=== PATIENT | female | born 1985 | race Caucasian/White ===

== ENCOUNTER → 2018-10-21 | Outpatient (REF) | payer SELFPAY ==
[~2018-10-21] MED LIST: ANUS2.5C2 TOP; IBUP600T26 PO; MAPA500T17 PO; MOM30SS PO
[2018-10-21 20:25] LABS: BASO % 0.2 % (0.0-1.0); EOS # 0.1 10^3/uL (0.0-0.50); HEMATOCRIT 40.9 % (36.0-47.0); HEMOGLOBIN 13.1 g/dl (12.0-15.5); LYMPH # 2.6 10^3/uL (1.5-4.5); LYMPH % 26.1 % (24.0-44.0); MEAN CORPUSCULAR VOLUME 93.6 fl (80.0-96.0); MONO # 0.4 10^3/uL (0.0-0.8); MONO % 4.2 % (0.0-5.0); NEUTROPHILS # 6.6 10^3/uL (1.8-7.7); NEUTROPHILS % 67.9 % (36.0-66.0); PLATELET COUNT, AUTOMATED 323 10^3/uL (150-450); RED BLOOD COUNT 4.37 10^6/uL (4.00-5.40); WHITE BLOOD COUNT 9.8 10^3/uL (4.0-10.0)
[2018-10-21 20:46] LABS: FREE T4 0.97 NG/DL (0.76-1.46); THYROID STIMULATING HORMONE 1.71 uIU/ML (0.358-3.740)
== END ==
LOC: M SFHCLERA 14:59
PROVIDERS: ATTEND Nurse Practitioner Family
DX: L50.9 Urticaria, unspecified (principal)

== ENCOUNTER → 2018-11-17 | Outpatient (REF) | payer SELFPAY ==
[~2018-11-17] MED LIST changes: +BENA25CA4 PO; +CLAR10CA3 PO; +HYDR-3363 PO; +LORA-674 PO; +PRED10TA2 PO
[2018-11-17 20:41] LABS: MONO REFLEX EBV COMP POSITIVE (NEGATIVE)
== END ==
LOC: M SFHCLERA 15:58
PROVIDERS: ATTEND Nurse Practitioner Family
DX: L50.9 Urticaria, unspecified (principal)

== ENCOUNTER 2018-11-20 08:55 | Inpatient (IN) | payer SELFPAY ==
[~2018-11-20] VITALS: Ht 170.2 cm; Wt 103.9 kg
[~2018-11-20 08:55] MED LIST changes: -BENA25CA4 PO; -CLAR10CA3 PO; -HYDR-3363 PO; -LORA-674 PO; -PRED10TA2 PO
[2018-11-20] MEDS ORDERED: LORA-674 PO (09:01)
[2018-11-20] MEDS ORDERED: CLAR10CA3 PO (09:01)
[2018-11-20] MEDS ORDERED: HYDR-3363 PO (09:01)
[2018-11-20] MEDS ORDERED: methylPREDNISolone INJ 125 MG/2 ML VIAL (J2930) IV ONE (10:00)
[2018-11-20] MEDS ORDERED: FAMOTIDINE INJ 20MG/2ML VIAL (S0028) IVP ONE (10:00)
[2018-11-20] MEDS ORDERED: diphenhydrAMINE INJ 50MG/ML VIAL (J1200) IV ONE (10:00)
[2018-11-20 10:03] LABS: BASO % 0.1 % (0.0-1.0); EOS % 0.4 % (0.0-3.0); HEMATOCRIT 41.4 % (36.0-47.0); HEMOGLOBIN 13.4 g/dl (12.0-15.5); LYMPH # 1.3 10^3/uL (1.5-4.5); LYMPH % 13.7 % (24.0-44.0); MEAN CORPUSCULAR HEMOGLOBIN 30.2 pg (27.0-33.0); MEAN CORPUSCULAR HGB CONC 32.4 g/dl (32.0-36.5); MEAN CORPUSCULAR VOLUME 93.2 fl (80.0-96.0); MONO # 0.3 10^3/uL (0.0-0.8); MONO % 2.7 % (0.0-5.0); NEUTROPHILS # 7.9 10^3/uL (1.8-7.7); NEUTROPHILS % 82.7 % (36.0-66.0); PLATELET COUNT, AUTOMATED 276 10^3/uL (150-450); RED BLOOD COUNT 4.44 10^6/uL (4.00-5.40); WHITE BLOOD COUNT 9.6 10^3/uL (4.0-10.0)
[2018-11-20] MEDS: NS 1,000 ML IV SCH ×2 (10:09→18:36)
[2018-11-20 10:14] LABS: ALBUMIN 3.7 GM/DL (3.2-5.2); ALT/SGPT 29 U/L (12-78); BILIRUBIN,DIRECT 0.2 MG/DL (0.0-0.2); BILIRUBIN,TOTAL 1.2 MG/DL (0.2-1.0); BLOOD UREA NITROGEN 7 MG/DL (7-18); C REACTIVE PROTEIN QUANTITATIV 2.36 MG/DL (0.00-0.30); CALCIUM LEVEL 8.7 MG/DL (8.5-10.1); CARBON DIOXIDE LEVEL 26 MEQ/L (21-32); CHLORIDE LEVEL 109 MEQ/L (98-107); COMPLEMENT C4 37 MG/DL (10-40); CREATININE FOR GFR 0.66 MG/DL (0.55-1.30); GLOMERULAR FILTRATION RATE > 60.0 (>60); GLUCOSE, FASTING 100 MG/DL (70-100); POTASSIUM SERUM 3.7 MEQ/L (3.5-5.1); SODIUM LEVEL 140 MEQ/L (136-145); TOTAL PROTEIN 6.8 GM/DL (6.4-8.2)
[2018-11-20 10:22] LABS: ERYTHROCYTE SEDIMENTATION RATE 21 mm/hr (0-20)
[2018-11-20 10:32] LABS: HCG, SERUM QUALITATIVE NEGATIVE (NEGATIVE)
[2018-11-20] MEDS ORDERED: NS 500 ML IV ONE (14:30)
[2018-11-20] MEDS: HEPARIN SOD (PORCINE) 5000 UNITS/ML VIAL SC SCH ×2 (15:18→21:32)
--- NOTE | 2018-11-20 16:36 | HPEPDOC ---
General Date of Admission November 20, 2018 at 14:51 Chief Complaint The patient is a 33-year-old female who presented to the ER after experiencing swelling of her face History of Present Illness Patient is a 33 year old female with a PMHx of Cardiac arrhythmias (~5 years ago; Had Holter monitor workup that was negative with Dr. Dietrich) IBS and GERD who presented to the ER with complaints of facial swelling. Patient has reported that over 3 months. Shes been experiencing hives that shes been following her primary care provider for. . She notes that she was receiving workup and was started on Loratadine and hydroxyzine for relief. Patient has described the rash as raised, red, warm, tender. Describes it as a return itchiness -02/18. Continuous, without any alleviating or aggravating factors. Patient denies any new medications. The use of [id number] medications, vitamins, supplements antibiotics, any changes to soaps, detergents or dietary changes. Mid-October she was started on a prednisone taper and had completed approximately 4 days ago. She indicated that while on prednisone she had improvement in her rash / hives. After completing it, she noticed worsening the hives. On Wednesday, 11/18 she began to experience some swelling of her lip. Upon waking up this morning patient had noted significant swelling of her face that prompted her to come to the ER for further evaluation. Patient denied any swelling of her tongue. Denied any shortness of breath. Did report some difficulty swallowing. However, this has resolved. Patient had not experienced any wheezing or stridor and did not express a cough. Currently patient denies chest pain or palpitations. Has not experienced fevers or chills, nausea, vomiting, abdominal pain, diarrhea or urinary discomfort. Patient does report occasional constipation. However, her last bowel movement was this morning. Home Medications Scheduled Loratadine (Loratadine) 10 Mg Tablet, 10 MG PO QHS, (Reported) Scheduled PRN Hydroxyzine HCl (Hydroxyzine HCl) 25 Mg Tablet, PO Q6H PRN for ITCHING, (Reported) Allergies Coded Allergies: No Known Allergies (Unverified , 11/20/18) Past Medical History Medical History Cardiac arrhythmias (~5 years ago; Had Holter monitor workup that was negative with Dr. 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 Review of Systems Other systems 10 point review systems complete, all negative otherwise stated in HPI Vital Signs - Vitals: BP 92/52, HR 89, RR 16, Sat 95%RA, Temp 98.6F - General: Lying in bed, No acute distress, Speaking in full sentences, AAOx3 - HEENT: NC, AT, PERRLA, EOMI, does not appear to have any significant facial swelling at this time, no stridor or wheezing appreciated - CVS: RRR, +S1S2, - Murmurs / rubs / gallops - Lungs: Fair air entry bilaterally, Clear to auscultation, No wheezing / rales / rhonchi - Abdomen: Soft, Non-distended, Non-tender - Extremities: No lower extremity edema, No calf tenderness - Neuro: No focal motor or sensory deficit - Skin: No visible rashes Laboratory Data Labs 24H Laboratory Tests 2 11/20/18 09:30: Immature Granulocyte % (Auto) 0.4, White Blood Count 9.6, Red Blood Count 4.44, Hemoglobin 13.4, Hematocrit 41.4, Mean Corpuscular Volume 93.2, Mean Corpuscular Hemoglobin 30.2, Mean Corpuscular Hemoglobin Concent 32.4, Red Cell Distribution Width 12.9, Platelet Count 276, Neutrophils (%) (Auto) 82.7H, Lymphocytes (%) (Auto) 13.7L, Monocytes (%) (Auto) 2.7, Eosinophils (%) (Auto) 0.4, Basophils (%) (Auto) 0.1, Neutrophils # (Auto) 7.9H, Lymphocytes # (Auto) 1.3L, Monocytes # (Auto) 0.3, Eosinophils # (Auto) 0.0, Basophils # (Auto) 0.0, Nucleated Red Blood Cells % (auto) 0.0, Erythrocyte Sedimentation Rate 21H, Anion Gap 5L, Glomerular Filtration Rate > 60.0, Calcium Level 8.7, Aspartate Amino Transf (A ST/SGOT) 20, Alanine Aminotransferase (ALT/SGPT) 29, Alkaline Phosphatase 84, Total Bilirubin 1.2H, Direct Bilirubin 0.2, C-Reactive Protein, Quantitative 2.36H, Total Protein 6.8, Albumin 3.7, Albumin/Globulin Ratio 1.19, Human Chorionic Gonadotropin, Qual NEGATIVE, Complement C4 37 11/20/18 10:11: CBC/BMP Laboratory Tests 11/20/18 09:30 Red Blood Count 4.44, Mean Corpuscular Volume 93.2, Mean Corpuscular Hemoglobin 30.2, Mean Corpuscular Hemoglobin Concent 32.4, Red Cell Distribution Width 12.9, Neutrophils (%) (Auto) 82.7 H, Lymphocytes (%) (Auto) 13.7 L, Monocytes (%) (Auto) 2.7, Eosinophils (%) (Auto) 0.4, Basophils (%) (Auto) 0.1, Neutrophils # (Auto) 7.9 H, Lymphocytes # (Auto) 1.3 L, Monocytes # (Auto) 0.3, Eosinophils # (Auto) 0.0, Basophils # (Auto) 0.0 Plan / VTE VTE Prophylaxis Ordered?: Yes Plan Plan Facial swelling - possibly 2/2 allergic reaction - etiology unclear, possibly 2/2 hereditary angioedema - Patient has been experiencing hives over last 3 months and just recently began experiencing facial swelling - Patient has denied any new medications [id number] supplements, vitamins or antibiotics - Denies any soaps or detergent changes - Currently patient has had resolution of her facial swelling - Patient remains hemodynamically stable and is able to protect her airway - Saturating well on room air - Lab work is unremarkable - Workup for hereditary angioedema pending; Celiac disease workup pending - c/w Solumedrol, Famotidine and Benadryl PRN - Will keep on PCU Cardiac arrhythmias - Reporte that she experienced this approximately 5 years ago - Has had Holter monitor workup that was negative with Dr. Dietrich - Has not experienced any recurrence since then IBS - Currently not experiencing any problems GERD - currently not on any medications - However Famotidine has been started for above DVT prophylaxis - Will start Heparin JAZMYNE RANDLE MD November 20, 2018 16:36
[2018-11-20 16:59] VITALS: BP 118/68
[2018-11-20] MEDS ORDERED: diphenhydrAMINE INJ 50MG/ML VIAL (J1200) IV SCH (18:00)
[2018-11-20] MEDS ORDERED: methylPREDNISolone INJ 125 MG/2 ML VIAL (J2930) IV SCH (18:00)
[2018-11-20] MEDS: diphenhydrAMINE INJ 50MG/ML VIAL (J1200) IV PRN (19:53)
[2018-11-20 20:00] VITALS: BP 110/61
[2018-11-20] MEDS: FAMOTIDINE IV BAG 20 MG in APPROPRIATE DILUENT 1 EA IV SCH (21:31)
[2018-11-20 23:59] VITALS: BP 120/66
[2018-11-21] MEDS ORDERED: diphenhydrAMINE INJ 50MG/ML VIAL (J1200) IV ONE
[2018-11-21] MEDS ORDERED: methylPREDNISolone INJ 125 MG/2 ML VIAL (J2930) IV ONE
[2018-11-21] MEDS: methylPREDNISolone INJ 40 MG/1 ML VIAL (J2920) IV SCH ×2 (02:20→09:34)
[2018-11-21 03:38] LABS: BASO % 0.1 % (0.0-1.0); HEMATOCRIT 36.8 % (36.0-47.0); HEMOGLOBIN 11.9 g/dl (12.0-15.5); LYMPH # 0.8 10^3/uL (1.5-4.5); LYMPH % 6.9 % (24.0-44.0); MEAN CORPUSCULAR HEMOGLOBIN 29.5 pg (27.0-33.0); MEAN CORPUSCULAR HGB CONC 32.3 g/dl (32.0-36.5); MEAN CORPUSCULAR VOLUME 91.1 fl (80.0-96.0); MONO # 0.1 10^3/uL (0.0-0.8); NEUTROPHILS # 9.9 10^3/uL (1.8-7.7); NEUTROPHILS % 91.4 % (36.0-66.0); PLATELET COUNT, AUTOMATED 283 10^3/uL (150-450); RED BLOOD COUNT 4.04 10^6/uL (4.00-5.40); WHITE BLOOD COUNT 10.9 10^3/uL (4.0-10.0)
[2018-11-21 04:00] VITALS: BP 111/64
[2018-11-21 04:05] LABS: ALBUMIN 3.1 GM/DL (3.2-5.2); ALT/SGPT 24 U/L (12-78); BILIRUBIN,TOTAL 0.5 MG/DL (0.2-1.0); BLOOD UREA NITROGEN 7 MG/DL (7-18); C REACTIVE PROTEIN QUANTITATIV 3.98 MG/DL (0.00-0.30); CALCIUM LEVEL 8.4 MG/DL (8.5-10.1); CARBON DIOXIDE LEVEL 23 MEQ/L (21-32); CHLORIDE LEVEL 111 MEQ/L (98-107); CREATININE FOR GFR 0.58 MG/DL (0.55-1.30); GLOMERULAR FILTRATION RATE > 60.0 (>60); GLUCOSE, FASTING 145 MG/DL (70-100); POTASSIUM SERUM 3.8 MEQ/L (3.5-5.1); SODIUM LEVEL 140 MEQ/L (136-145); TOTAL PROTEIN 6.6 GM/DL (6.4-8.2)
[2018-11-21] MEDS: HEPARIN SOD (PORCINE) 5000 UNITS/ML VIAL SC SCH ×2 (06:12→13:53)
[2018-11-21 08:06] VITALS: BP 106/55
[2018-11-21] MEDS: diphenhydrAMINE INJ 50MG/ML VIAL (J1200) IV PRN ×2 (08:09→15:13)
[2018-11-21] MEDS: FAMOTIDINE IV BAG 20 MG in APPROPRIATE DILUENT 1 EA IV SCH (09:34)
[2018-11-21 12:00] VITALS: BP 107/59
[2018-11-21] MEDS ORDERED: CLAR10CA3 PO (12:30)
[2018-11-21] MEDS ORDERED: BENA25CA4 PO (12:31)
[2018-11-21] MEDS ORDERED: PRED10TA2 PO ×2 (12:32→13:33)
--- NOTE | 2018-11-21 21:52 | DSES ---
DATE OF ADMISSION: 11/20/2018 DATE OF DISCHARGE: DISCHARGE DIAGNOSIS: Chronic urticaria. SECONDARY DIAGNOSES: 1. Angioedema. 2. Irritable bowel syndrome. 3. Cardiac arrhythmia. 4. Gastroesophageal reflux disease (GERD). HOSPITAL COURSE: The patient is a 33-year-old female who had a negative workup for arrhythmias greater than [address] Dietrich with a history of irritable bowel syndrome and GERD, who presented to the emergency room with complaints of facial swelling. Over a 3 month period, she has been experiencing hives. The patient has been following with her primary care provider as an outpatient and she has been having frequent flares. She denies any potential triggers. No soap, detergents, pets, carpet, environmental exposures. No dietary changes. No new medications. Denies any history of autoimmune disease and no history of angioedema in the family. No recent AKOSUA inhibitor use. She was recently on a prednisone taper and when she finished the taper, six days afterwards she began to have swelling of her lip and face, prompting her to present to the emergency room and her admission yesterday. At the time I visited her this morning, the angioedema has completely resolved. She does have some urticaria lesions, but they are very mild. Today, subjectively, she denies shortness of breath, fevers, chills, chest pain, nausea, vomiting or diarrhea. OBJECTIVE: VITAL SIGNS: Temperature 97, pulse 82, respiratory rate 19, blood pressure 156/75, oxygen saturation 96% on room air. GENERAL: She is a morbidly obese, female lying flat in bed and accompanied by her . She does not appear to be in any acute distress. She is awake, alert and oriented times three. HEENT: Cranial nerves II-XII are grossly intact. She has moist mucous membranes. No elevation in central venous pressure. CARDIOVASCULAR: S1, S2 regular. RESPIRATORY EXAM: Clear. SKIN: She does have a raised, morbilliform rash throughout her chest and upper arms, it is very mild at this time. It is described as pruritic. ABDOMINAL EXAM: Obese. Soft, nontender. The abdomen is soft. EXTREMITIES: No clubbing, cyanosis or edema. LABORATORY STUDIES: WBC 10.9, hemoglobin 11.9, platelet count is 283. Chemistry panel: Sodium 140, potassium 3.8, chloride 111, bicarbonate 23, BUN 7, creatinine 0.5. C-reactive protein mildly elevated at 3.9. is currently pending. HCG was negative. Factor VII is pending. IgA is low. C1 esterase inhibitor is pending. No microbiology or imaging. ASSESSMENT AND PLAN: This is a 33-year-old female who presented with angioedema and chronic urticaria. 1. Angioedema secondary to chronic urticaria. The etiology at this time is not immediately clear. Workup has been sent, including a C1 esterase inhibitor to assess for any deficiency. She is noted to have a chronic urticaria. I would recommend outpatient referral to allergy/immunology for further evaluation. For the time being, her symptoms do appear to be improved and abating. I will provide her with 10 mg of prednisone daily until she is able to be evaluated by chiropractic neurologist. I have also increased her loratadine from 10 mg daily to 20 mg daily and advised her to take an additional prednisone tablet and Benadryl as needed. I advised her that she could use topical steroids, hydrocortisone over the counter twice a day as needed. We did discuss potential triggers, including caffeine, chocolate and I did do some bedside testing to assess her response to pneumatograph with cold, vibration, and pressure. She did seem to have a minimal amount of positive pressure but none of which were lasting. I did recommend that she followup with her primary care provider within 7 days. I advised her that she should not be driving while on Benadryl. Otherwise, her diet is as prior to admission. Dr. Mcfadden did advise her to have a gluten free diet to see if that would help her symptoms as well. She has been advised to return to the emergency room if she were to experience shortness of breath or facial swelling once again. MEDICATIONS: At the time of discharge: - Benadryl 50 mg every 12 hours as needed for itching or swelling - loratadine 20 mg at night - prednisone 10 mg daily - hydroxyzine 25 mg every 6 hours as needed for itching 45 minutes was spent organizing a safe disposition and answering all questions to the patient's and family's satisfaction.
[2018-11-23 00:06] LABS: ENDOMYSIAL ABY IgA Negative (Negative); TISSUE TRANSGLUTAMINASE IgA <2 U/mL (0-3); TISSUE TRANSGLUTAMINASE IgG 4 U/mL (0-5)
[2018-11-24 00:06] LABS: TRYPTASE 6.5 ug/L (2.2-13.2)
== END 2018-11-21 15:26 | disposition home or self-care (01) | DRG 423 ==
LOC: M ED 08:55 → M ED INP 14:51 → OBSVTOIN 16:21 → M PCU 16:50
PROVIDERS: ADMIT Internal Medicine; ATTEND Internal Medicine
DX: D84.1 Defects in the complement system (principal); K21.9 Gastro-esophageal reflux disease without esophagitis; K58.9 Irritable bowel syndrome, unspecified

== ENCOUNTER → 2019-01-04 | Outpatient (CLI) | payer BC ==
[~2019-01-04] MED LIST changes: +BENA25CA4 PO; +CLAR10CA3 PO; +HYDR-3363 PO; +LORA-674 PO; +PRED10TA2 PO
[2019-01-04 18:06] LABS: HEMATOCRIT 36.1 % (36.0-47.0); HEMOGLOBIN 11.6 g/dl (12.0-15.5); MEAN CORPUSCULAR HEMOGLOBIN 29.1 pg (27.0-33.0); MEAN CORPUSCULAR HGB CONC 32.1 g/dl (32.0-36.5); MEAN CORPUSCULAR VOLUME 90.5 fl (80.0-96.0); PLATELET COUNT, AUTOMATED 336 10^3/uL (150-450); RED BLOOD COUNT 3.99 10^6/uL (4.00-5.40); WHITE BLOOD COUNT 7.7 10^3/uL (4.0-10.0)
[2019-01-04 18:31] LABS: ALBUMIN 2.9 GM/DL (3.2-5.2); ALT/SGPT 31 U/L (12-78); BILIRUBIN,TOTAL 0.6 MG/DL (0.2-1.0); BLOOD UREA NITROGEN 7 MG/DL (7-18); CALCIUM LEVEL 8.4 MG/DL (8.5-10.1); CARBON DIOXIDE LEVEL 31 MEQ/L (21-32); CHLORIDE LEVEL 104 MEQ/L (98-107); CREATININE FOR GFR 0.64 MG/DL (0.55-1.30); GLOMERULAR FILTRATION RATE > 60.0 (>60); GLUCOSE, FASTING 86 MG/DL (70-100); POTASSIUM SERUM 3.5 MEQ/L (3.5-5.1); RHEUMATOID FACTOR QUANT < 10.0 IU/ML (<15.0); SODIUM LEVEL 139 MEQ/L (136-145); THYROID PEROXIDASE ANTIBODY < 28.0 U/ML (<60.0); THYROXINE (T4) 9.8 UG/DL (4.5-12.0); TOTAL PROTEIN 6.5 GM/DL (6.4-8.2)
[2019-01-04 18:32] LABS: ERYTHROCYTE SEDIMENTATION RATE 39 mm/hr (0-20); THYROGLOBULIN ANTIBODY 22.3 U/ML (<60.0); TOTAL T3 95.8 NG/DL (60.0-181.0)
== END ==
LOC: M LAB 17:20
PROVIDERS: ATTEND Allergy & Immunology Allergy
DX: L50.1 Idiopathic urticaria (principal)

== ENCOUNTER 2019-05-29 11:21 | Emergency (ER) | payer BC, OTHER ==
[~2019-05-29] VITALS: Ht 170.2 cm; Wt 97.7 kg
[2019-05-29] MEDS ORDERED: FAMOTIDINE INJ 20MG/2ML VIAL (S0028) IVP ONE (13:15)
[2019-05-29] MEDS ORDERED: methylPREDNISolone INJ 125 MG/2 ML VIAL (J2930) IV ONE (13:15)
[2019-05-29] MEDS ORDERED: NS 1,000 ML IV ONE (13:15)
[2019-05-29] MEDS ORDERED: diphenhydrAMINE INJ 50MG/ML VIAL (J1200) IV ONE (13:15)
[2019-05-29 13:36] LABS: BASO % 0.1 % (0.0-1.0); EOS % 0.1 % (0.0-3.0); HEMATOCRIT 44.1 % (36.0-47.0); HEMOGLOBIN 14.3 g/dl (12.0-15.5); LYMPH # 0.6 10^3/uL (1.5-5.0); MEAN CORPUSCULAR HEMOGLOBIN 29.3 pg (27.0-33.0); MEAN CORPUSCULAR HGB CONC 32.4 g/dl (32.0-36.5); MEAN CORPUSCULAR VOLUME 90.4 fl (80.0-96.0); MONO # 0.2 10^3/uL (0.0-0.8); MONO % 2.1 % (0.0-5.0); NEUTROPHILS # 7.4 10^3/uL (1.5-8.5); NEUTROPHILS % 90.3 % (36.0-66.0); PLATELET COUNT, AUTOMATED 253 10^3/uL (150-450); RED BLOOD COUNT 4.88 10^6/uL (4.00-5.40); WHITE BLOOD COUNT 8.2 10^3/uL (4.0-10.0)
--- NOTE | 2019-05-29 13:46 | REP ---
Single view chest: 05/30/2019. Indication: Dyspnea. Cough. Comparison: 04/08/2012. Findings: The lungs are clear. There is no pleural effusion or pneumothorax. The cardiomediastinal silhouette is unremarkable. Impression: No acute cardiopulmonary process. Electronically Signed by Dejuan Garcia DO 05/29/2019 01:36 P
[2019-05-29 14:03] LABS: BLOOD UREA NITROGEN 10 MG/DL (7-18); C REACTIVE PROTEIN QUANTITATIV 9.14 MG/DL (0.00-0.30); CALCIUM LEVEL 8.4 MG/DL (8.5-10.1); CARBON DIOXIDE LEVEL 23 MEQ/L (21-32); CHLORIDE LEVEL 103 MEQ/L (98-107); CREATININE FOR GFR 0.84 MG/DL (0.55-1.30); GLOMERULAR FILTRATION RATE > 60.0 (>60); GLUCOSE, FASTING 168 MG/DL (70-100); POTASSIUM SERUM 3.3 MEQ/L (3.5-5.1); SODIUM LEVEL 135 MEQ/L (136-145)
[2019-05-29] MEDS ORDERED: ACETAMINOPHEN TAB 650MG DOSE (2X325MG) PO ONE (14:45)
[2019-05-29] MEDS ORDERED: ZANT150T40 PO (17:20)
[2019-05-29] MEDS ORDERED: ALLE180T33 PO (17:20)
[2019-05-29] MEDS ORDERED: ALL10TAB29 PO (17:20)
[2019-05-29] MEDS ORDERED: HYDR-3363 PO (17:25)
[2019-05-29] MEDS ORDERED: PRED10TA2 PO (17:27)
[2019-05-29 17:51] VITALS: BP 108/66
--- NOTE | 2019-05-29 18:08 | ECGEPIP ---
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
== END 2019-05-29 18:04 | disposition home or self-care (01) ==
LOC: M ED 11:21
DX: L50.1 Idiopathic urticaria (principal); R00.0 Tachycardia, unspecified; R06.02 Shortness of breath; K58.9 Irritable bowel syndrome, unspecified; K21.9 Gastro-esophageal reflux disease without esophagitis; F17.200 Nicotine dependence, unspecified, uncomplicated; Z79.899 Other long term (current) drug therapy
CPT/HCPCS: 71045; 80048; 85025; 86140; 87486; 87581; 87633; 87798; 93005; 93041; 94760; 96361; 96374; 96375; 99285; J1200; J2930

== ENCOUNTER → 2019-06-01 | Outpatient (REF) | payer OTHER ==
[~2019-06-01] MED LIST changes: +ALL10TAB29 PO; +ALLE180T33 PO; +ZANT150T40 PO
[2019-06-01 13:54] LABS: BASO % 0.1 % (0.0-1.0); HEMATOCRIT 41.6 % (36.0-47.0); HEMOGLOBIN 12.8 g/dl (12.0-15.5); LYMPH # 2.2 10^3/uL (1.5-5.0); LYMPH % 23.2 % (24.0-44.0); MEAN CORPUSCULAR HEMOGLOBIN 28.8 pg (27.0-33.0); MEAN CORPUSCULAR HGB CONC 30.8 g/dl (32.0-36.5); MEAN CORPUSCULAR VOLUME 93.7 fl (80.0-96.0); MONO # 0.7 10^3/uL (0.0-0.8); MONO % 7.4 % (0.0-5.0); NEUTROPHILS # 6.5 10^3/uL (1.5-8.5); PLATELET COUNT, AUTOMATED 295 10^3/uL (150-450); RED BLOOD COUNT 4.44 10^6/uL (4.00-5.40); WHITE BLOOD COUNT 9.5 10^3/uL (4.0-10.0)
[2019-06-01 14:05] LABS: ALBUMIN 3.6 GM/DL (3.2-5.2); ALT/SGPT 39 U/L (12-78); BILIRUBIN,TOTAL 0.4 MG/DL (0.2-1.0); BLOOD UREA NITROGEN 9 MG/DL (7-18); CALCIUM LEVEL 9.4 MG/DL (8.5-10.1); CARBON DIOXIDE LEVEL 31 MEQ/L (21-32); CHLORIDE LEVEL 108 MEQ/L (98-107); CREATININE FOR GFR 0.67 MG/DL (0.55-1.30); GLOMERULAR FILTRATION RATE > 60.0 (>60); GLUCOSE, FASTING 67 MG/DL (70-100); POTASSIUM SERUM 3.7 MEQ/L (3.5-5.1); SODIUM LEVEL 142 MEQ/L (136-145); TOTAL PROTEIN 7.5 GM/DL (6.4-8.2)
== END ==
LOC: M SFHCLERA 11:11
PROVIDERS: ATTEND Nurse Practitioner Family
DX: L50.9 Urticaria, unspecified (principal); E87.6 Hypokalemia

== ENCOUNTER → 2019-08-09 | Outpatient (REF) | payer OTHER ==
[2019-08-09 18:35] LABS: BASO % 0.2 % (0.0-1.0); EOS # 0.1 10^3/uL (0.0-0.5); EOS % 0.9 % (0.0-3.0); HEMATOCRIT 43.9 % (36.0-47.0); HEMOGLOBIN 14.2 g/dl (12.0-15.5); LYMPH # 1.3 10^3/uL (1.5-5.0); LYMPH % 16.2 % (24.0-44.0); MEAN CORPUSCULAR HEMOGLOBIN 30.3 pg (27.0-33.0); MEAN CORPUSCULAR HGB CONC 32.3 g/dl (32.0-36.5); MEAN CORPUSCULAR VOLUME 93.8 fl (80.0-96.0); MONO # 0.5 10^3/uL (0.0-0.8); MONO % 6.4 % (0.0-5.0); NEUTROPHILS # 6.2 10^3/uL (1.5-8.5); NEUTROPHILS % 75.9 % (36.0-66.0); PLATELET COUNT, AUTOMATED 222 10^3/uL (150-450); RED BLOOD COUNT 4.68 10^6/uL (4.00-5.40); WHITE BLOOD COUNT 8.2 10^3/uL (4.0-10.0)
[2019-08-09 18:39] LABS: ALBUMIN 4.4 GM/DL (3.2-5.2); ALT/SGPT 23 U/L (12-78); BILIRUBIN,TOTAL 0.8 MG/DL (0.2-1.0); BLOOD UREA NITROGEN 7 MG/DL (7-18); C REACTIVE PROTEIN QUANTITATIV 1.55 MG/DL (0.00-0.30); CALCIUM LEVEL 8.9 MG/DL (8.5-10.1); CARBON DIOXIDE LEVEL 28 MEQ/L (21-32); CHLORIDE LEVEL 105 MEQ/L (98-107); COMPLEMENT C3 133 MG/DL (90-180); COMPLEMENT C4 33 MG/DL (10-40); CREATININE FOR GFR 0.74 MG/DL (0.55-1.30); GLOMERULAR FILTRATION RATE > 60.0 (>60); GLUCOSE, FASTING 83 MG/DL (70-100); POTASSIUM SERUM 3.8 MEQ/L (3.5-5.1); RHEUMATOID FACTOR QUANT < 10.0 IU/ML (<15.0); SODIUM LEVEL 139 MEQ/L (136-145); TOTAL PROTEIN 7.9 GM/DL (6.4-8.2)
[2019-08-09 19:03] LABS: ERYTHROCYTE SEDIMENTATION RATE 17 mm/hr (0-20)
[2019-08-09 19:47] LABS: APPEARANCE, URINE CLOUDY (CLEAR); BACTERIA, URINE AUTO NEGATIVE (NEGATIVE); BILIRUBIN, URINE AUTO NEGATIVE (NEGATIVE); BLOOD, URINE BLOOD NEGATIVE (NEGATIVE); COLOR, URINE YELLOW (YELLOW); GLUCOSE, URINE (UA) AUTO NEGATIVE (NEGATIVE); KETONE, URINE AUTO TRACE mg/dL (NEGATIVE); LEUKOCYTE ESTERASE, URINE AUTO 3+ (NEGATIVE); MUCUS, URINE SMALL (NEGATIVE); NITRITE, URINE AUTO NEGATIVE (NEGATIVE); PROTEIN, URINE AUTO NEGATIVE (NEGATIVE); RBC, URINE AUTO 5 /HPF (0-3); SQUAMOUS EPITHELIAL CELL UR AU 10 /HPF (0-6); UROBILINOGEN, URINE AUTO 0.2 mg/dL (0.0-2.0); WBC, URINE AUTO 17 /HPF (0-3)
== END ==
LOC: M SFHCRHEU 14:52
PROVIDERS: ATTEND Internal Medicine
DX: L50.8 Other urticaria (principal); M25.50 Pain in unspecified joint

== ENCOUNTER 2019-08-31 16:39 | Emergency (ER) | payer OTHER ==
[~2019-08-31] VITALS: Ht 170.2 cm; Wt 101.4 kg
[2019-08-31] MEDS ORDERED: diphenhydrAMINE INJ 50MG/ML VIAL (J1200) IV STA (17:23)
[2019-08-31] MEDS ORDERED: methylPREDNISolone INJ 125 MG/2 ML VIAL (J2930) IV ONE (17:30)
[2019-08-31] MEDS ORDERED: ONDANSETRON 4MG/2ML VIAL (J2405) IV ONE (17:30)
[2019-08-31] MEDS ORDERED: NS 1,000 ML IV ONE (17:30)
[2019-08-31 18:23] LABS: BASO % 0.1 % (0.0-1.0); EOS % 0.1 % (0.0-3.0); HEMATOCRIT 47.9 % (36.0-47.0); HEMOGLOBIN 15.7 g/dl (12.0-15.5); LYMPH # 0.8 10^3/uL (1.5-5.0); LYMPH % 10.2 % (24.0-44.0); MEAN CORPUSCULAR HEMOGLOBIN 29.7 pg (27.0-33.0); MEAN CORPUSCULAR HGB CONC 32.8 g/dl (32.0-36.5); MEAN CORPUSCULAR VOLUME 90.7 fl (80.0-96.0); MONO # 0.3 10^3/uL (0.0-0.8); MONO % 3.8 % (0.0-5.0); NEUTROPHILS # 6.5 10^3/uL (1.5-8.5); NEUTROPHILS % 85.4 % (36.0-66.0); PLATELET COUNT, AUTOMATED 201 10^3/uL (150-450); RED BLOOD COUNT 5.28 10^6/uL (4.00-5.40); WHITE BLOOD COUNT 7.6 10^3/uL (4.0-10.0)
[2019-08-31 18:49] LABS: INFLUENZA A AMPLIFICATION POSITIVE (NEGATIVE); INFLUENZA B AMPLIFICATION NEGATIVE (NEGATIVE)
[2019-08-31 19:00] LABS: BILIRUBIN,DIRECT 0.2 MG/DL (0.0-0.2); BILIRUBIN,TOTAL 0.8 MG/DL (0.2-1.0); THYROID STIMULATING HORMONE 1.49 uIU/ML (0.358-3.740); TOTAL PROTEIN 7.8 GM/DL (6.4-8.2)
--- NOTE | 2019-08-31 19:05 | REP ---
Chest x-ray: Two views. History: Cough and fever. Rales. . Comparison study: May 29, 2019 . Findings: The lungs are well inflated and free of infiltrate. The pleural angles are sharp. The heart size is normal. Pulmonary vasculature is not increased. No significant bony abnormality is seen. Impression: Negative chest x-ray. Electronically Signed by Florencio Raymond MD 08/31/2019 06:56 P
[2019-08-31] MEDS ORDERED: ACETAMINOPHEN 325 MG TAB PO ONE (19:45)
[2019-08-31] MEDS ORDERED: IBUPROFEN 800 MG TAB PO ONE (21:30)
[2019-08-31] MEDS ORDERED: POTASSIUM CHLORIDE 10 MEQ SR TABLET PO ONE (21:45)
[2019-08-31 21:59] VITALS: BP 113/56
[2019-08-31] MEDS ORDERED: ONDA4TAB6 PO (23:07)
[2019-08-31] MEDS ORDERED: OSEL75CA PO (23:10)
[2019-08-31] MEDS ORDERED: hydrOXYzine 50 MG TAB PO STA (23:10)
[2019-08-31] MEDS ORDERED: OSELTAMIVIR PHOSPHATE 75 MG CAP (TAMIFLU) PO ONE (23:15)
--- NOTE | 2019-09-01 06:50 | ECGEPIP ---
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
== END 2019-08-31 23:19 | disposition home or self-care (01) ==
LOC: M ED 16:39
DX: J11.1 Influenza due to unidentified influenza virus with other respiratory manifestations (principal); R94.31 Abnormal electrocardiogram [ECG] [EKG]; J45.909 Unspecified asthma, uncomplicated; K58.9 Irritable bowel syndrome, unspecified
CPT/HCPCS: 71046; 80047; 80076; 81001; 83690; 84443; 84702; 85025; 87040; 87086; 87502; 93005; 94760; 96374; 96375; 99284; J1200; J2405; J2930

== ENCOUNTER 2020-11-08 12:44 | Emergency (ER) | payer OTHER ==
[~2020-11-08] VITALS: Ht 170.2 cm; Wt 106.4 kg
[~2020-11-08 12:44] MED LIST changes: -ALL10TAB29 PO; +CETI-24 PO; +ONDA4TAB6 PO; +OSEL75CA PO
[2020-11-08] MEDS ORDERED: methylPREDNISolone 125MG 2ML VIAL IV ONE (13:05)
[2020-11-08] MEDS ORDERED: diphenhydrAMINE 50MG/ML VIAL (J1200) IV ONE (13:05)
[2020-11-08] MEDS ORDERED: NS 1,000 ML IV ONE (13:05)
[2020-11-08] MEDS ORDERED: FAMOTIDINE INJ 20MG/2ML VIAL (S0028 PER 1) IVP ONE (13:05)
[2020-11-08 14:45] LABS: BASO % 0.1 % (0.0-1.0); EOS % 0.1 % (0.0-3.0); HEMATOCRIT 44.7 % (36.0-47.0); HEMOGLOBIN 14.3 g/dl (12.0-15.5); LYMPH # 1.7 10^3/uL (1.5-5.0); LYMPH % 13.2 % (24.0-44.0); MEAN CORPUSCULAR HEMOGLOBIN 29.8 pg (27.0-33.0); MEAN CORPUSCULAR VOLUME 93.1 fl (80.0-96.0); MONO # 0.2 10^3/uL (0.0-0.8); MONO % 1.8 % (2.0-8.0); NEUTROPHILS # 10.6 10^3/uL (1.5-8.5); NEUTROPHILS % 84.3 % (36.0-66.0); PLATELET COUNT, AUTOMATED 292 10^3/uL (150-450); WHITE BLOOD COUNT 12.6 10^3/uL (4.0-10.0)
[2020-11-08 15:08] LABS: ALBUMIN 3.6 GM/DL (3.2-5.2); ALT/SGPT 28 U/L (12-78); BILIRUBIN,DIRECT 0.3 MG/DL (0.0-0.2); BILIRUBIN,TOTAL 1.6 MG/DL (0.2-1.0); BLOOD UREA NITROGEN 9 MG/DL (7-18); C REACTIVE PROTEIN QUANTITATIV 4.04 MG/DL (0.00-0.30); CALCIUM LEVEL 8.8 MG/DL (8.5-10.1); CARBON DIOXIDE LEVEL 26 MEQ/L (21-32); CHLORIDE LEVEL 109 MEQ/L (98-107); COMPLEMENT C4 39 MG/DL (10-40); CREATININE FOR GFR 0.64 MG/DL (0.55-1.30); GLOMERULAR FILTRATION RATE > 60.0 (>60); GLUCOSE, FASTING 110 MG/DL (70-100); POTASSIUM SERUM 3.5 MEQ/L (3.5-5.1); SODIUM LEVEL 141 MEQ/L (136-145); TOTAL PROTEIN 6.9 GM/DL (6.4-8.2)
[2020-11-08 15:21] LABS: ERYTHROCYTE SEDIMENTATION RATE 9 mm/hr (0-20)
[2020-11-08] MEDS ORDERED: PRED10TA2 PO (16:36)
[2020-11-08] MEDS ORDERED: PEPC1TAB5 PO (16:36)
[2020-11-08 16:44] VITALS: BP 106/60
[2020-11-11 16:12] LABS: TRYPTASE 12.1 ug/L (2.2-13.2)
== END 2020-11-08 16:53 | disposition home or self-care (01) ==
LOC: M ED 12:44
DX: T78.40XA Allergy, unspecified, initial encounter (principal); T78.3XXA Angioneurotic edema, initial encounter; R21 Rash and other nonspecific skin eruption; L50.9 Urticaria, unspecified; J45.909 Unspecified asthma, uncomplicated; K58.9 Irritable bowel syndrome, unspecified; K21.9 Gastro-esophageal reflux disease without esophagitis
CPT/HCPCS: 80048; 80076; 83519; 85025; 85280; 85652; 86140; 86160; 86161; 86850; 86900; 86901; 93041; 94760; 96361; 96374; 96375; 99285; J1200; J2930

== ENCOUNTER → 2020-12-11 | Outpatient (REF) | payer OTHER ==
[~2020-12-11] MED LIST changes: +PEPC1TAB5 PO
== END ==
LOC: M LAB REF 19:00
PROVIDERS: ATTEND Physician Assistant
DX: L50.9 Urticaria, unspecified (principal)

== ENCOUNTER → 2021-12-24 | Outpatient (CLI) | payer OTHER | LOC: M PLAIMG 09:50 | PROVIDERS: ATTEND Physician Assistant | DX: M25.512 Pain in left shoulder (principal) ==

== ENCOUNTER → 2022-07-25 | Outpatient (CLI) | payer OTHER | LOC: M RAD 08:57 | PROVIDERS: ATTEND Orthopaedic Surgery | DX: M67.814 Other specified disorders of tendon, left shoulder (principal) ==

== ENCOUNTER → 2022-12-11 | Outpatient (CLI) | payer OTHER | LOC: M WUC 08:45 | PROVIDERS: ATTEND Student in an Organized Health Care Education/Training Program | DX: M25.512 Pain in left shoulder (principal) ==

== ENCOUNTER → 2022-12-23 | Outpatient (CLI) | payer OTHER ==
[2022-12-23 10:08] LABS: BASO % 0.2 % (0.0-1.0); EOS # 0.1 10^3/uL (0.0-0.5); EOS % 1.6 % (0.0-3.0); HEMATOCRIT 41.3 % (36.0-47.0); HEMOGLOBIN 13.3 g/dl (12.0-15.5); LYMPH % 22.1 % (24.0-44.0); MEAN CORPUSCULAR HEMOGLOBIN 30.3 pg (27.0-33.0); MEAN CORPUSCULAR HGB CONC 32.2 g/dl (32.0-36.5); MEAN CORPUSCULAR VOLUME 94.1 fl (80.0-96.0); MONO # 0.5 10^3/uL (0.0-0.8); MONO % 5.5 % (2.0-8.0); NEUTROPHILS # 6.3 10^3/uL (1.5-8.5); PLATELET COUNT, AUTOMATED 269 10^3/uL (150-450); RED BLOOD COUNT 4.39 10^6/uL (4.00-5.40)
[2022-12-23 10:14] LABS: HEMOGLOBIN A1c 5.2 % (4.0-6.0)
[2022-12-23 10:28] LABS: ALBUMIN 3.7 G/DL (3.2-5.2); ALKALINE PHOSPHATASE 74 U/L (46-116); ALT/SGPT 17 U/L (7.0-40); AST/SGOT 17 U/L (<34); BILIRUBIN,TOTAL 1.4 MG/DL (0.3-1.2); BLOOD UREA NITROGEN 13 MG/DL (9-23); CALCIUM LEVEL 8.6 MG/DL (8.5-10.1); CARBON DIOXIDE LEVEL 25 MMOL/L (20-31); CHLORIDE LEVEL 106 MMOL/L (98-107); CHOLESTEROL LEVEL 173 MG/DL (<200); CHOLESTEROL RISK RATIO 3.87 (<5); CREATININE FOR GFR 0.76 MG/DL (0.55-1.30); GLOMERULAR FILTRATION RATE > 60.0 (>60); GLUCOSE, FASTING 98 MG/DL (60-100); HDL CHOLESTEROL 44.6 MG/DL (>40); LDL CHOLESTEROL 106.4 MG/DL (<100); NON-HDL-C 128.4 MG/DL; POTASSIUM SERUM 4.3 MMOL/L (3.5-5.1); SODIUM LEVEL 137 MMOL/L (136-145); THYROID STIMULATING HORMONE 1.543 uIU/ML (0.55-4.78); TOTAL PROTEIN 6.9 G/DL (5.7-8.2); TRIGLYCERIDES LEVEL 110 MG/DL (<150)
== END ==
LOC: M RAD 08:42
PROVIDERS: ATTEND Registered Nurse
DX: R06.02 Shortness of breath (principal); E66.9 Obesity, unspecified

== ENCOUNTER → 2023-03-10 | Outpatient (REF) | payer OTHER | LOC: M LAB REF 17:50 | PROVIDERS: ATTEND Registered Nurse | DX: Z12.4 Encounter for screening for malignant neoplasm of cervix (principal); R87.615 Unsatisfactory cytologic smear of cervix ==

== ENCOUNTER → 2023-04-20 | Outpatient (REF) | payer OTHER ==
[~2023-04-20] MED LIST changes: +LORA-1041 PO; -LORA-674 PO
== END ==
LOC: M PLALAB 14:20
PROVIDERS: ATTEND Advanced Practice Midwife
DX: R87.615 Unsatisfactory cytologic smear of cervix (principal); Z12.4 Encounter for screening for malignant neoplasm of cervix

== ENCOUNTER → 2023-04-27 | Outpatient (CLI) | payer OTHER | LOC: M WHC 11:43 | PROVIDERS: ATTEND Advanced Practice Midwife | DX: N92.0 Excessive and frequent menstruation with regular cycle (principal); N88.8 Other specified noninflammatory disorders of cervix uteri; N83.201 Unspecified ovarian cyst, right side; N83.202 Unspecified ovarian cyst, left side ==

== ENCOUNTER → 2023-05-07 | Outpatient (CLI) | payer OTHER ==
[2023-05-07 17:09] LABS: HEMATOCRIT 39.5 % (36.0-47.0); HEMOGLOBIN 12.9 g/dl (12.0-15.5); MEAN CORPUSCULAR HEMOGLOBIN 30.5 pg (27.0-33.0); MEAN CORPUSCULAR HGB CONC 32.7 g/dl (32.0-36.5); MEAN CORPUSCULAR VOLUME 93.4 fl (80.0-96.0); PLATELET COUNT, AUTOMATED 271 10^3/uL (150-450); RED BLOOD COUNT 4.23 10^6/uL (4.00-5.40)
[2023-05-07 17:11] LABS: FREE T4 0.92 NG/DL (0.89-1.76); THYROID STIMULATING HORMONE 2.669 uIU/ML (0.55-4.78)
== END ==
LOC: M PLALAB 14:29
PROVIDERS: ATTEND Advanced Practice Midwife
DX: N92.0 Excessive and frequent menstruation with regular cycle (principal)

== ENCOUNTER → 2023-12-16 | Outpatient (CLI) | payer OTHER ==
[~2023-12-16] MED LIST changes: +ONDA-282 PO; -ONDA4TAB6 PO
== END ==
LOC: M RAD 15:03
PROVIDERS: ATTEND Registered Nurse
DX: R51.9 Headache, unspecified (principal)

== ENCOUNTER → 2024-08-17 | Outpatient (REF) | payer OTHER | LOC: M SFHCDERM 17:35 | PROVIDERS: ATTEND Nurse Practitioner Family | DX: D21.12 Benign neoplasm of connective and other soft tissue of left upper limb, including shoulder (principal) ==

== ENCOUNTER → 2025-02-27 | Outpatient (CLI) | payer OTHER ==
[~2025-02-27] MED LIST changes: +LEVO1TAB39 PO
== END ==
LOC: M RAD 10:45
PROVIDERS: ATTEND Plastic Surgery Surgery of the Hand
DX: L72.0 Epidermal cyst (principal)

== ENCOUNTER 2025-03-01 06:05 | Day surgery (SDC) | payer OTHER ==
[~2025-03-01] VITALS: Ht 170.2 cm; Wt 108.5 kg
[2025-03-01 06:36] LABS: PLATELET COUNT, AUTOMATED 275 10^3/uL (150-450)
[2025-03-01] MEDS: LR 1,000 ML IV SCH (06:40)
[2025-03-01 06:52] LABS: CALCIUM LEVEL 8.9 MG/DL (8.5-10.1); CARBON DIOXIDE LEVEL 29 MMOL/L (20-31); CHLORIDE LEVEL 106 MMOL/L (98-107); CREATININE FOR GFR 0.77 MG/DL (0.55-1.30); GLOMERULAR FILTRATION RATE > 90.0 (>60); POTASSIUM SERUM 4.2 MMOL/L (3.5-5.1); SODIUM LEVEL 144 MMOL/L (136-145)
[2025-03-01] MEDS ORDERED: MIDAZOLAM INJ 2 MG/2 ML VIAL As Ordered ONE (07:19)
[2025-03-01] MEDS ORDERED: LIDOCAINE 2% 100 MG/5 ML SDV (FOR ANES.) As Ordered ONE (07:19)
[2025-03-01] MEDS ORDERED: ONDANSETRON 4MG 2ML VIAL As Ordered ONE (07:19)
[2025-03-01] MEDS ORDERED: dexAMETHasone 4 MG/ML 1 ML VIAL As Ordered ONE (07:41)
[2025-03-01] MEDS ORDERED: LACRILUBE (AKWA TEARS) OPHTH OINT 3.5 GM As Ordered ONE (07:47)
[2025-03-01] MEDS: ceFAZolin SOD 2 GM IV ONCE IV ONE (07:52)
[2025-03-01] MEDS ORDERED: ACETAMINOPHEN 1000MG/100ML IV BAG As Ordered ONE (08:08)
[2025-03-01] MEDS: POVIDONE-IODINE 5% OPHTH PREP SOL 30ML As Ordered ONE (08:11)
[2025-03-01] MEDS: POLYSPORIN OPHTH OINT 3.5 GM As Ordered ONE (08:20)
[2025-03-01] MEDS: LIDOCAINE 2% W/EPINEPHrine 20 ML VIAL **PRES FREE As Ordered ONE (08:20)
[2025-03-01] MEDS ORDERED: HYDROMORPHONE HCL 0.5 MG/0.5 ML SYRINGE IV PRN (08:25)
[2025-03-01] MEDS ORDERED: LR 1,000 ML IV SCH (08:25)
[2025-03-01 09:22] VITALS: BP 115/66; TEMP 96.8; O2SAT 97
== END 2025-03-01 10:19 | disposition home or self-care (01) ==
LOC: M SDC 06:05
PROVIDERS: ATTEND Plastic Surgery Surgery of the Hand
DX: H00.14 Chalazion left upper eyelid (principal); Z79.2 Long term (current) use of antibiotics
CPT/HCPCS: 11442; 36415; 80048; 85027; 87070; 87075; 87077; 87186; 87205; 88304; J0131; J0690; J1100; J2250; J2405; J2765; J3010

== ENCOUNTER → 2025-04-19 | Outpatient (CLI) | payer OTHER | LOC: M RAD 12:18 | PROVIDERS: ATTEND Registered Nurse | DX: J45.20 Mild intermittent asthma, uncomplicated (principal) ==

== ENCOUNTER → 2025-04-20 | Outpatient (CLI) | payer OTHER ==
[2025-04-20 11:40] LABS: BASO # 0.0 10^3/uL (0.0-0.2); BASO % 0.2 % (0.0-1.0); EOS # 0.1 10^3/uL (0.0-0.5); EOS % 0.5 % (0.0-3.0); LYMPH # 2.7 10^3/uL (1.5-5.0); LYMPH % 22.5 % (24.0-44.0); MONO # 0.7 10^3/uL (0.0-0.8); MONO % 5.7 % (2.0-8.0); NEUTROPHILS # 8.3 10^3/uL (1.5-8.5); NEUTROPHILS % 70.7 % (36.0-66.0); PLATELET COUNT, AUTOMATED 279 10^3/uL (150-450)
[2025-04-20 12:12] LABS: ALT/SGPT 22 U/L (7.0-40); AST/SGOT 15 U/L (<34); CALCIUM LEVEL 8.9 MG/DL (8.5-10.1); CARBON DIOXIDE LEVEL 25 MMOL/L (20-31); CHLORIDE LEVEL 108 MMOL/L (98-107); CHOLESTEROL LEVEL 187 MG/DL (<200); CHOLESTEROL RISK RATIO 3.97 (<5); CREATININE FOR GFR 0.79 MG/DL (0.55-1.30); GLOMERULAR FILTRATION RATE > 90.0 (>60); LDL CHOLESTEROL 126.3 MG/DL (<100); NON-HDL-C 139.9 MG/DL; POTASSIUM SERUM 3.7 MMOL/L (3.5-5.1); SODIUM LEVEL 143 MMOL/L (136-145); TRIGLYCERIDES LEVEL 68 MG/DL (<150)
== END ==
LOC: M LAB 10:33
PROVIDERS: ATTEND Registered Nurse
DX: Z00.00 Encounter for general adult medical examination without abnormal findings (principal)

== ENCOUNTER 2025-05-29 21:12 | Emergency (ER) | payer OTHER ==
[~2025-05-29] VITALS: Ht 170.2 cm; Wt 105.9 kg
[2025-05-29] MEDS: ALBUTEROL SULFATE 2.5 MG/0.5 ML INH CONCENTRATE NEB SOLN INH ONE (22:24)
[2025-05-29] MEDS: IPRATROPIUM 0.5 MG/ALBUTEROL 2.5 MG INH SOL UD 3 ML NEB ONE (22:24)
[2025-05-29] MEDS: FAMOTIDINE 20 MG/2 ML VIAL IVP ONE (22:26)
[2025-05-29 22:43] LABS: BASO # 0.0 10^3/uL (0.0-0.2); BASO % 0.5 % (0.0-1.0); EOS # 0.0 10^3/uL (0.0-0.5); EOS % 0.3 % (0.0-3.0); LYMPH # 2.0 10^3/uL (1.5-5.0); LYMPH % 22.3 % (24.0-44.0); MONO # 0.6 10^3/uL (0.0-0.8); MONO % 6.3 % (2.0-8.0); NEUTROPHILS # 6.2 10^3/uL (1.5-8.5); NEUTROPHILS % 70.1 % (36.0-66.0); PLATELET COUNT, AUTOMATED 253 10^3/uL (150-450)
[2025-05-29] MEDS ORDERED: EPIP0.3I2 IM (23:00)
[2025-05-29] MEDS ORDERED: PRED20TA PO (23:00)
[2025-05-29 23:07] LABS: C REACTIVE PROTEIN QUANTITATIV < 0.50 MG/DL (<1.0)
[2025-05-29 23:42] LABS: CALCIUM LEVEL 8.2 MG/DL (8.5-10.1); CARBON DIOXIDE LEVEL 23 MMOL/L (20-31); CHLORIDE LEVEL 110 MMOL/L (98-107); CREATININE FOR GFR 0.78 MG/DL (0.55-1.30); GLOMERULAR FILTRATION RATE > 90.0 (>60); POTASSIUM SERUM 3.4 MMOL/L (3.5-5.1); SODIUM LEVEL 145 MMOL/L (136-145)
[2025-05-30 00:15] VITALS: BP 94/54; TEMP 97.6; O2SAT 96
== END 2025-05-30 00:23 | disposition home or self-care (01) ==
LOC: M ED 21:12
DX: T78.40XA Allergy, unspecified, initial encounter (principal); I45.81 Long QT syndrome; I45.10 Unspecified right bundle-branch block; Z79.52 Long term (current) use of systemic steroids; Z79.899 Other long term (current) drug therapy
CPT/HCPCS: 71045; 80048; 85025; 86140; 93005; 93041; 94640; 94760; 96374; 99285; J1308; J2919